=== PATIENT | male | born 1975 | race Caucasian/White ===

== ENCOUNTER 2017-01-29 13:31 | Emergency (ER) | payer MEDICARE, OTHER ==
[~2017-01-29] VITALS: Ht 180.3 cm; Wt 181.0 kg
[~2017-01-29 13:31] MED LIST: ALPRAZOLAM0.5 MG PO; AMBIEN10 MG PO; AMOXICILLIN875 MG PO; AUGMENTIN875 MG PO; BENTYL10 M1 PO; FOLIC ACID PO; HYDROCODON-ACE1 EAC5 PO; IBUPROFEN800 MG PO; KEFLEX500 M2 PO; OXYGEN; PENICILLIN V P500 MG PO; PLAQUENIL200 MG PO; PRAVASTATIN SOD40 MG PO; PREDNISONE50 MG PO; PROAIR HFA8.5 GM IH; PROTONIX PO; SINGULAIR PO; VEETIDS 500500 M1 PO
== END 2017-01-29 14:42 | disposition home or self-care (01) ==
LOC: SED 13:31
DX: K02.9 Dental caries, unspecified (principal); J45.909 Unspecified asthma, uncomplicated; Z79.899 Other long term (current) drug therapy
CPT/HCPCS: 99283